=== PATIENT | female | born 1945 | race Two or more races ===

== ENCOUNTER 2022-09-08 09:00 | Outpatient (CLI) | payer OTHER | END 2022-09-08 09:09 | disposition home or self-care (01) | LOC: MAMO-SONO 09:00 | PROVIDERS: ATTEND Internal Medicine Hematology & Oncology | DX: C50.912 Malignant neoplasm of unspecified site of left female breast (principal); R92.2 Inconclusive mammogram ==

== ENCOUNTER 2023-04-20 14:55 | Inpatient (IN) | payer OTHER ==
[~2023-04-20] VITALS: Ht 167.6 cm; Wt 65.8 kg
--- NOTE | 2023-04-20 15:54 | NUR ---
SE RECIBE PTE ALERTA Y ORIENTADA REFIERE QUE SE YANI, PTE TIENE REFERIDO MEDICO DR. GODOY, FAMILIAR REFIERE QUE DR. GODOY HABLO CON DR. POST. SE ESTELITA VITALES Y SE OBSERVACION.
--- NOTE | 2023-04-20 18:12 | NUR ---
SE RECIBE PTE ALERTA Y ORIENTADA CON ORDENES DE ADMISION DIRECTA.
[2023-04-21] MEDS ORDERED: SIMVASTATIN20 MG (08:21)
[2023-04-21] MEDS ORDERED: OXYBUTYNIN CHLO15 MG (08:21)
[2023-04-21] MEDS ORDERED: METOPROLOL TART50 MG (08:21)
[2023-04-21] MEDS ORDERED: OMEPRAZOLE20 MG (08:21)
[2023-04-21] MEDS ORDERED: LOSARTAN POTAS100 MG (08:21)
[2023-04-24] MEDS ORDERED: PERCOCET 5-3251 EACH PO (13:05)
[2023-04-24] MEDS ORDERED: CIPRO500 MG PO (13:05)
[2023-04-24] MEDS ORDERED: ELIQUIS2.5 MG PO (13:05)
== END 2023-04-24 16:34 | DRG 481 ==
LOC: ER 14:55 → SURH 19:28
PROVIDERS: ADMIT Orthopaedic Surgery; ATTEND Orthopaedic Surgery
PROC: 3E0F7SF Introduction of Other Gas into Respiratory Tract, Via Natural or Artificial Opening (ICD-10-PCS; 2023-04-21)
PROC: 0QSC04Z Reposition Left Lower Femur with Internal Fixation Device, Open Approach (ICD-10-PCS; principal; 2023-04-21 09:00)
PROC: 30233N1 Transfusion of Nonautologous Red Blood Cells into Peripheral Vein, Percutaneous Approach (ICD-10-PCS; 2023-04-22)
DX: M80.052A Age-related osteoporosis with current pathological fracture, left femur, initial encounter for fracture (principal); D62 Acute posthemorrhagic anemia; I10 Essential (primary) hypertension

== ENCOUNTER 2023-09-26 09:51 | Outpatient (CLI) | payer OTHER ==
[~2023-09-26 09:51] MED LIST: CIPRO500 MG PO; ELIQUIS2.5 MG PO; LOSARTAN POTAS100 MG; METOPROLOL TART50 MG; OMEPRAZOLE20 MG; OXYBUTYNIN CHLO15 MG; PERCOCET 5-3251 EACH PO; SIMVASTATIN20 MG
== END 2023-09-26 09:57 | disposition home or self-care (01) ==
LOC: MAMO-SONO 09:51
PROVIDERS: ATTEND Internal Medicine Hematology & Oncology
DX: C50.912 Malignant neoplasm of unspecified site of left female breast (principal); R92.2 Inconclusive mammogram; N60.12 Diffuse cystic mastopathy of left breast

== ENCOUNTER 2024-09-28 12:08 | Outpatient (CLI) | payer OTHER | END 2024-09-28 12:11 | disposition home or self-care (01) | LOC: MAMO-SONO 12:08 | PROVIDERS: ATTEND Internal Medicine Hematology & Oncology | DX: C50.912 Malignant neoplasm of unspecified site of left female breast (principal); R92.2 Inconclusive mammogram; N60.11 Diffuse cystic mastopathy of right breast ==